=== PATIENT | male | born 1965 | race Caucasian/White ===

== ENCOUNTER 2021-05-06 00:22 | Emergency (ER) | payer OTHER ==
[~2021-05-06] VITALS: Ht 170.2 cm; Wt 68.2 kg
[2021-05-06] MEDS ORDERED: ROSU20TA73 PO (00:30)
[2021-05-06] MEDS ORDERED: SULF1TAB42 PO (00:30)
[2021-05-06] MEDS ORDERED: PredniSONE 20 MG TABLET PO ONE (02:15)
[2021-05-06] MEDS ORDERED: DiphenhydrAMINE HCL 25 MG CAPSULE PO ONE (02:15)
[2021-05-06 04:48] VITALS: BP 116/71
== END 2021-05-06 05:31 | disposition home or self-care (01) ==
LOC: EMS 00:25
DX: L50.0 Allergic urticaria (principal); E78.00 Pure hypercholesterolemia, unspecified
CPT/HCPCS: 99283; J7512

== ENCOUNTER 2022-09-27 14:57 | Emergency (ER) | payer OTHER ==
[~2022-09-27] VITALS: Ht 165.1 cm; Wt 70.5 kg
[~2022-09-27 14:57] MED LIST: ROSU20TA73 PO; SULF1TAB42 PO
[2022-09-27] MEDS ORDERED: ATOR10TA PO (15:27)
[2022-09-27] MEDS ORDERED: ALLO100T50 PO (15:27)
[2022-09-27 19:13] VITALS: BP 129/68
[2022-09-27] MEDS ORDERED: PROP10DR2 OU (19:17)
[2022-09-27] MEDS ORDERED: ALLO300T2 PO (19:17)
[2022-09-27] MEDS ORDERED: KETO.5OS OU (19:17)
[2022-09-27] MEDS ORDERED: ROSU20TA73 PO (19:17)
[2022-09-27] MEDS ORDERED: COLC0.6C3 PO (19:17)
== END 2022-09-27 19:36 | disposition home or self-care (01) ==
LOC: EMS 14:59
DX: R51.9 Headache, unspecified (principal); M54.2 Cervicalgia; E78.00 Pure hypercholesterolemia, unspecified; V49.88XA Car occupant (driver) (passenger) injured in other specified transport accidents, initial encounter; Y93.89 Activity, other specified; Y92.89 Other specified places as the place of occurrence of the external cause; Y99.8 Other external cause status
CPT/HCPCS: 70450; 72125; 99284